=== PATIENT | female | born 1955 | race Two or more races ===

== ENCOUNTER → 2018-12-07 | Outpatient (CLI) | payer BC ==
--- NOTE | 2018-12-08 07:44 | XR ---
EXAMINATION TYPE: XR KUB DATE OF EXAM: 12/07/2018 COMPARISON: NONE HISTORY: Pain TECHNIQUE: One view abdominal series FINDINGS: The osseous structures are intact. The bowel gas pattern is nonspecific. Postsurgical change involvi ng the gallbladder fossa. Curvature the spine with scoliosis. Arthropathy of the hips. Right kidney: The level the renal pelvis there is a round calcification measuring 9 mm compatible wit h a renal pelvic stone. Left kidney: There are 4 punctate calcifications involving the mid left kidney compatible with tiny r enal calculi. All measure less than 5 mm. Pelvis: Calcifications in pelvis are nonspecific. Could not exclude multiple punctate calcifications within the distal ureter bilaterally. IMPRESSION: 1. Bilateral nephrolithiasis as discussed above.
== END | disposition home or self-care (01) ==
LOC: EDBD → RADXRMAIN 16:19
PROVIDERS: ATTEND Urology
DX: N20.0 Calculus of kidney (principal)
CPT/HCPCS: 74018

== ENCOUNTER → 2018-12-09 | Outpatient (CLI) | payer BC ==
--- NOTE | 2018-12-09 17:00 | CT ---
EXAMINATION TYPE: CT abdomen pelvis wo con DATE OF EXAM: 12/09/2018 COMPARISON: None INDICATION: right flank pain DLP: 301.9 mGycm, Automated exposure control for dose reduction was used. CONTRAST: 0 mL of Isovue 300. Study performed without Oral Contrast TECHNIQUE: Axial images were obtained from above the diaphragm to the pubic rami in the axial plane a t 5 mm thick sections. Reconstructed images are reviewed on the computer in the coronal plane. FINDINGS: Limited CT sections are obtained the lung bases. The lung bases are clear. CT ABDOMEN: Liver: Normal Spleen: Normal Pancreas: Normal Adrenal glands: The adrenal glands are normal. Gallbladder: Surgically absent. Kidneys: There are bilateral renal stones present. This includes left upper pole posterior calcificat ions including a 0.3 cm renal stone at the upper pole, a 0.2 cm renal stone and a second 0.2 cm renal stone in the mid left kidney. There is a 0.3 cm renal stone in the mid to inferior pole and a 0.3 cm renal stone at the inferior pole with a 0.2 cm on the most inferior pole left renal stone. On the right renal pelvis there is a 0.7 x 1.1 cm calcification with some moderate hydronephrosis. Th ere appears to be some hydroureter of the proximal ureter. Within the mid ureter there is a punctate 0.2 cm calcification. There appear to be phleboliths present on the left. No hydronephrosis is prese nt. No cysts are present. Aorta: Normal Inferior vena cava: Normal. CT PELVIS: Multiple phleboliths are within the pelvis. Loops of bowel within the abdomen and pelvis are normal. Studies performed without oral contrast limiting bowel evaluation. Appendix: Not identified. No suspicious dilated tubular structures or inflammatory changes are eviden t. Urinary bladder: Normal. Genitourinary structures: Vaginal cuff region appears normal. Uterus is not clearly identified. Adnex al regions appear unremarkable. Osseous structures: No suspicious lytic or sclerotic lesions. Degenerative disc disease present L5-S1 . IMPRESSIONS: 1. 0.2 cm mid right ureteral calcification. 2. Large right renal pelvis calcification with moderate hydronephrosis. Some perinephric stranding in this region is present. 3. Multiple left side nonobstructing renal stones.
== END ==
LOC: RADCTMAIN 15:40 → EDBD 16:00
PROVIDERS: ATTEND Urology
DX: N13.2 Hydronephrosis with renal and ureteral calculous obstruction (principal); Z88.2 Allergy status to sulfonamides; Z88.8 Allergy status to other drugs, medicaments and biological substances
CPT/HCPCS: 74176

== ENCOUNTER → 2019-01-04 | Outpatient (CLI) | payer BC ==
[2019-01-04 17:01] LABS: Basophils # (A) 0.1 k/uL (0-0.2); Basophils % (A) 1 %; Eosinophils # (A) 0.1 k/uL (0-0.7); Eosinophils % (A) 1 %; HCT 37.9 % (34.0-46.0); HGB 11.9 gm/dL (11.4-16.0); Lymphocytes # (A) 2.9 k/uL (1.0-4.8); Lymphocytes % (A) 37 %; MCH 28.9 pg (25.0-35.0); MCHC 31.5 g/dL (31.0-37.0); MCV 91.8 fL (80.0-100.0); Mean Platelet Volume 7.1; Monocytes # (A) 0.3 k/uL (0-1.0); Monocytes % (A) 4 %; Neutrophils # (A) 4.3 k/uL (1.3-7.7); Neutrophils % (A) 55 %; Platelet Count 240 k/uL (150-450); RBC 4.13 m/uL (3.80-5.40); RDW 13.8 % (11.5-15.5); WBC 7.8 k/uL (3.8-10.6)
== END | disposition home or self-care (01) ==
LOC: LABPAT 16:01
PROVIDERS: ATTEND Urology
DX: Z01.812 Encounter for preprocedural laboratory examination (principal); N20.0 Calculus of kidney
CPT/HCPCS: 80051; 82565; 84520; 85025

== ENCOUNTER 2019-01-09 07:34 | Day surgery (SDC) | payer BC ==
[2019-01-04 13:24] VITALS: BMI 22.2
--- NOTE | 2019-01-09 07:18 | P.GSHP ---
History of Present Illness H&P Date: 01/09/19 63 yo female witha 9 mm painful right renal pelvic stone who comes for eswl right The alternatives have been discussed as have the risks and complications of eswl - Constitutional Constitutional: Denies chills, Denies fever - EENT Eyes: denies blurred vision, denies pain Ears, nose, mouth and throat: Denies headache, Denies sore throat - Cardiovascular Cardiovascular: Denies chest pain, Denies shortness of breath - Respiratory Respiratory: Denies cough, Denies 7 - Gastrointestinal Gastrointestinal: Denies abdominal pain, Denies diarrhea, Denies nausea, Denies vomiting - Genitourinary (Female) Genitourinary: Denies dysuria, Denies hematuria - Genitourinary (Male) Genitourinary: Denies dysuria, Denies hematuria - Musculoskeletal Musculoskeletal: Denies myalgias - Integumentary Integumentary: Denies pruritus, Denies rash - Neurological Neurological: Denies numbness, Denies weakness - Psychiatric Psychiatric: Denies anxiety, Denies depression - Endocrine Endocrine: Denies fatigue, Denies weight change Past Medical History Past Medical History: Fibromyalgia, GERD/Reflux, Osteoarthritis (OA), Thyroid Disorder Additional Past Medical History / Comment(s): MENIERES DISEASE, RINGING RIGHT EAR., MIGRAINES, BACK PAIN, HX OF ANEMIA, KIDNEY STONES., HAVING ABDOMINAL PAIN AND BACK PAIN History of Any Multi-Drug Resistant Organisms: None Reported Past Surgical History: Appendectomy, Cholecystectomy, Hysterectomy, Orthopedic Surgery Additional Past Surgical History / Comment(s): ARTHROSCOPY LYNNE KNEES, BREAST BX X2, BUNIONECTOMY. COLONOSCOPY Past Anesthesia/Blood Transfusion Reactions: Family History of Problems w/ Anesthesia, Motion Sickness, Postoperative Nausea & Vomiting (PONV) Additional Past Anesthesia/Blood Transfusion Reaction / Comment(s): SISTER- TAKES LONGER WAKING UP, VOMITING Smoking Status: Never smoker - Past Family History Brother(s) Family Medical History: Cancer Additional Family Medical History / Comment(s): COLON CANCER Father Family Medical History: Cancer Additional Family Medical History / Comment(s): STOMACH CANCER Medications and Allergies Home Medications Medication Instructions Recorded Confirmed Type Atorvastatin [Lipitor] 20 mg PO HS 07/01/18 01/04/19 History Echinacea 1 tab PO DAILY 07/01/18 01/04/19 History Estradiol [Estrace] 1 mg PO DAILY 07/01/18 01/04/19 History Hyoscyamine Sulfate [Hyoscyamine 0.125 mg SL Q3-4H PRN 07/01/18 01/04/19 History Sulfate SL] Lansoprazole [Prevacid] 30 mg PO DAILY 07/01/18 01/04/19 History Levothyroxine Sodium [Synthroid] 100 mcg PO DAILY 07/01/18 01/04/19 History Topiramate [Topamax] 100 mg PO BID 07/01/18 01/04/19 History Vitamin B-12 1 tab PO WEEKLY 07/01/18 01/04/19 History clonazePAM [KlonoPIN] 0.5 mg PO HS 07/01/18 01/04/19 History Desvenlafaxine Succinate [Pristiq] 100 mg PO DAILY 01/04/19 01/04/19 History Folic Acid 1 mg PO DAILY 01/04/19 01/04/19 History lamoTRIgine [lamoTRIgine ER] 25 mg PO HS 01/04/19 01/04/19 History Allergies Allergy/AdvReac Type Severity Reaction Status Date / Time aripiprazole [From Abilify] Allergy Unknown TREMORS Verified 01/04/19 13:09 sulfamethoxazole Allergy Unknown TREMORS Verified 01/04/19 13:09 [From Bactrim] trimethoprim [From Bactrim] Allergy Unknown TREMORS Verified 01/04/19 13:09 Surgical - Exam - General well developed, well nourished, no distress - Eyes PERRL - ENT no hearing loss - Neck trachea midline - Respiratory normal expansion, normal respiratory effort - Cardiovascular Rhythm: regular - Abdomen Abdomen: soft, non tender - Neurologic normal coordination, normal sensation - Musculoskeletal normal gait, normal posture - Psychiatric oriented to time, oriented to person, oriented to place, speech is normal, memory intact Results - Imaging Abdominal x-ray: report reviewed, image reviewed CT scan - abdomen: report reviewed, image reviewed CT scan - pelvis: report reviewed, image reviewed Assessment and Plan Assessment: Impression: Right renal pelvic stone Plan ESWL right
[~2019-01-09 07:34] MED LIST: LACTATED RINGERS 1,000 ML IV SCH; Pre Op ABX Message 1 EACH MISC MISCELLANE ONE
--- NOTE | 2019-01-09 07:44 | XR ---
EXAMINATION TYPE: XR KUB DATE OF EXAM: 01/09/2019 COMPARISON: 12/07/2018 HISTORY: Prelithotripsy TECHNIQUE: One view abdominal series FINDINGS: The osseous structures are intact. The bowel gas pattern is nonspecific. Surgical clips in the right upper quadrant. Scoliosis of the spine. Calcifications in suggesting previous surgery in the pelvis. Arthropathy of the hips. Stable appearing calcification right upper quadrant measuring 9.5 mm. IMPRESSION: 1. 9.5 mm stable appearing calcification likely within the renal pelvis.
[2019-01-09 09:08] VITALS: TEMP 97.7
[2019-01-09] MEDS ORDERED: DEXAMETHASONE SOD PHOSPHATE 10 MG/ML 1 ML VIAL IV ONE (09:15)
[2019-01-09] MEDS ORDERED: LIDOCAINE 1% 20 ML VIAL (10MG/ML) FOR IV START INTRADERMA ONE (09:15)
[2019-01-09] MEDS ORDERED: ONDANSETRON 4 MG/2 ML VIAL IVP ONE (09:15)
[2019-01-09] MEDS ORDERED: GLYCOPYRROLATE 0.2 MG/ML 2 ML VIAL ONE (09:32)
[2019-01-09] MEDS ORDERED: PROPOFOL 10 MG/ML 20 ML VIAL IV ONE (09:32)
[2019-01-09] MEDS ORDERED: fentaNYL (PF) 50 MCG/ML 2 ML AMP ONE (09:32)
[2019-01-09] MEDS ORDERED: MIDAZOLAM 2 MG/2 ML VIAL ONE (09:32)
[2019-01-09] MEDS ORDERED: LIDOCAINE 1% INJ 10MG/ML (20 ML MDV) ONE (09:32)
[2019-01-09] MEDS ORDERED: KETAMINE 10 MG/ML 20 ML VIAL ONE (09:32)
--- NOTE | 2019-01-09 10:16 | P.OP ---
Date of Procedure: 01/09/19 Preoperative Diagnosis: Right Renal Calculus Postoperative Diagnosis: Same Anesthesia: MAC Surgeon: Clifton Hale Estimated Blood Loss (ml): 0 IV fluids (ml): 550 Pathology: none sent Condition: stable Disposition: PACU Indications for Procedure: The patient is a 63 yo female with right flank pain due to a 9 mm right renal pelvic stone. The alternatives have been discussed as have the risks and complications of ESWL, and she has elected to undergo ESWL. Operative Findings: Calculus fragments well. Description of Procedure: The patient was taken to the operating room and placed on the [employer] lithotripter in the supine position. The calculus was seen on biplanar fluoroscopy. Lasix 10 mg was given intravenously. Once the patient was properly positioned and sedated, lithotripsy was performed. The energy level was gradually increased per protocol, to an energy level of 5. After 200 shocks were administered, a 2 minute pause was instituted per protocol. A total of 2500 shocks were given at a rate of 80 shocks per minute. Fluoroscopy was utilized at a minimum to ensure proper positioning and determine the treatment status. The calculus changed in appearance, consistent with fragmentation. The patient tolerated the procedure well was taken to the recovery room in stable condition. Instructions were given to strain the urine, and the patient will follow-up within one week.
[2019-01-09 10:40] VITALS: BP 128/88; PULSE 67; RESP 18
== END 2019-01-09 11:04 | disposition home or self-care (01) ==
LOC: ORWHC2ENDO 07:34 → EDBD 12:15
PROVIDERS: ATTEND Urology
DX: N20.0 Calculus of kidney (principal); K21.9 Gastro-esophageal reflux disease without esophagitis; E07.9 Disorder of thyroid, unspecified; M79.7 Fibromyalgia; M19.90 Unspecified osteoarthritis, unspecified site; H81.09 Meniere's disease, unspecified ear; G43.909 Migraine, unspecified, not intractable, without status migrainosus; Z87.442 Personal history of urinary calculi; Z88.2 Allergy status to sulfonamides; Z88.8 Allergy status to other drugs, medicaments and biological substances; Z90.49 Acquired absence of other specified parts of digestive tract; Z90.710 Acquired absence of both cervix and uterus; Z79.890 Hormone replacement therapy; Z79.899 Other long term (current) drug therapy; Z80.0 Family history of malignant neoplasm of digestive organs
CPT/HCPCS: 74018; 50590; J2250; J1100; J2405; J2001; J3010; J2704

== ENCOUNTER → 2019-01-17 | Outpatient (CLI) | payer BC ==
--- NOTE | 2019-01-17 13:42 | XR ---
KUB HISTORY: Renal calculi, lithotripsy one week prior KUB on 2 images correlated prior KUB 01/09/2019, CT 12/09/2018 Scoliotic curvature is again noted within the spine. Multiple calcifications are present within the p sebastien similar to prior. Surgical clips are present right upper quadrant. The calcification superimposed over the right kidney is no longer seen. IMPRESSION: Post lithotripsy findings.
== END ==
LOC: RADXRMAIN 12:11
PROVIDERS: ATTEND Urology
DX: N20.0 Calculus of kidney (principal); Z98.890 Other specified postprocedural states
CPT/HCPCS: 74018